=== PATIENT | female | born 1990 | race Caucasian/White ===

== ENCOUNTER 2022-04-25 17:40 | Inpatient (IN) | payer OTHER, SELFPAY ==
[2022-04-25 17:59] VITALS: BP 134/66; PULSE 85; RESP 20; TEMP 36.9; O2SAT 100; BMI 28.2
[2022-04-25 18:37] LABS: Add Manual Diff / Slide Review NO; Basophils Absolute Auto 0 /uL (0-100); Basophils Percent Auto 0.1 % (0-2); Eosinophils Absolute Auto 0 /uL (0-450); Eosinophils Percent Auto 0.2 % (2-4); Hematocrit 38.8 % (36-46); Hemoglobin 13.3 g/dL (12.0-16.0); Lymphocytes Absolute Auto 700 /uL (1100-4500); Mean Corpuscular HGB Conc 34.3 % (30-36); Mean Corpuscular Volume 90.6 fL (80-100); Monocytes Absolute Auto 400 /uL (0-900); Monocytes Percent Auto 3.6 % (3-14); Neutrophils Absolute Auto 10200 /uL (1500-7000); Neutrophils Percent Auto 90.1 % (50-75); Platelet Count 181 X10^3/uL (150-400); Red Blood Cell Count 4.28 X10^6/uL (4.0-5.2); Red Cell Distribution Width 13.2 % (11.6-14.8); White Blood Cell Count 11.4 X10^3/uL (4.5-11.0)
[2022-04-25 18:44] LABS: Alanine Aminotransferase 33 IU/L (<35); Albumin 4.3 g/dL (3.5-5.0); Albumin Globulin Ratio 1.3 (1.0-2.8); Alkaline Phosphatase 70 U/L (38-126); Aspartate Aminotransferase 31 IU/L (14-36); BUN Creatinine Ratio 9.2 (6-22); Bilirubin Total 1.4 mg/dL (0.2-1.3); Blood Urea Nitrogen 6 mg/dL (7-17); Carbon Dioxide 25 mmol/L (22-32); Chloride 99 mmol/L (98-107); Estimated Glomerular Filt Rate > 60 mL/min (>60); Globulin 3.4 g/dL (1.7-4.1); Glucose 106 mg/dL (70-100); HEMOLYSIS 47 (0-50); Lipase 100 U/L (23-300); Potassium 4.2 mmol/L (3.4-5.1); Sodium 134 mmol/L (137-145); Total Protein 7.7 g/dL (6.3-8.2)
--- NOTE | 2022-04-25 20:34 | ED_ITS ---
HPI - Abdominal Pain General Chief Complaint: Abdominal Pain Stated Complaint: ABD pain, 3x days Time Seen by Provider: 04/25/22 20:27 Source: patient Mode of arrival: Ambulatory History of Present Illness HPI narrative: This 32-year-old healthy young woman comes to the ER with abdominal pain for 4 days. Back in November she was diagnosed by CT with diverticulitis and was treated with oral antibiotics and resolved completely. Similar symptoms started Thursday of this week and she was seen in the clinic on and started on Cipro and Flagyl. She lives in [place]. The CT scanner was down and she could not get imaging then. 48 hours have elapsed since the onset of antibiotic therapy and she still has very significant abdominal pain radiating to the right lower quadrant now. She has no dysuria. She has a little bit of flank pain. She has no fever, no vomiting no constipation. No other symptoms of illness. No prev ious surgeries and no other medical problems. She is not as she is not currently sexually active. Related Data Home Medications Medication Instructions Recorded Confirmed valacyclovir 500 mg tablet 500 mg PO DAILY 03/04/19 03/04/19 Allergies Allergy/AdvReac Type Severity Reaction Status Date / Time No Known Drug Allergies Allergy Unverified 03/04/19 11:09 Review of Systems Review of Systems Narrative: Complete review of systems is negative other than as noted above. Patient History Medical History (Updated 04/25/22 @ 21:26 by Ridge Gómez MD) Chicken pox (~1992) Headache Herpes (~2011) Migraines Social History marital status: unmarried,single pets and animals: Yes education level: high school occupational status: employed leisure activities: other seatbelt use: always helmet use: Yes water heater temp set < 120 deg: Yes working smoke detector in home: Yes fire extinguisher in home: Yes carbon monox detector in home: Yes firearms in home: No Smoking Status: Never smoker alcohol intake: current substance use type: does not use during the past year weight has: remained stable Smoking Status: Never smoker alcohol intake frequency: holidays/special occasions only Exam Narrative Exam Narrative: GENERAL: Alert, cooperative and in no distress. HEAD: Atraumatic. Normocephalic. EYES: Sclera are clear without icterus. Extraocular movements are full. ENT: No rhinorrhea. Oropharynx is moist. Mouth exam is benign. NECK: Supple. Full range of motion. CARDIOVASCULAR: Normal rate and rhythm without murmur gallop or rub. RESPIRATORY: Clear to auscultation. Breath sounds equal bilaterally. No wheezes, rales, or rhonchi. GASTROINTESTINAL: Soft, tender, McBurney's point tenderness. Some guarding some rebound. Heel strike is positive EXTREMITIES: No edema, full range of motion. No obvious trauma. BACK: Normal inspection, no CVA tenderness. NEURO: Nonfocal examination, normal speech, normal gait. SKIN: No rash or erythema of visible areas PSYCH: Normally oriented. Normal range of affect. Appropriate behavior Initial Vital Signs Initial Vital Signs: Vital Signs Temperature 98.5 F 04/25/22 17:59 Pulse Rate 85 04/25/22 17:59 Respiratory Rate 20 04/25/22 17:59 Blood Pressure 134/66 04/25/22 17:59 Pulse Oximetry 100 04/25/22 17:59 Oxygen Delivery Method 04/25/22 17:59 Course Orders Ordered: ED Orders 04/25/22 18:15 Complete Blood Count AUTO DIFF Stat Comprehensive Metabolic Panel Stat Lipase Stat 04/25/22 20:39 CT abdomen pelvis w con Stat 04/25/22 21:14 COVID19 -Nasal RAPID/Pre-Proc Stat Consultations Consultation #1: Consult with Mayra Hernández. She agrees to see and admit the patient. Vital Signs Vital signs: Vital Signs - 8 hr 04/25/22 17:59 Temperature 98.5 F Pulse Rate 85 Respiratory Rate 20 Blood Pressure 134/66 Pulse Oximetry 100 Oxygen Delivery Method Room Air MDM - Abdominal Pain Lab Data Result diagrams: 04/25/22 18:15 04/25/22 18:15 Labs: Lab Results 04/25/22 04/25/22 Range/Units 18:15 18:15 WBC 11.4 H (4.5-11.0) X10^3/uL RBC 4.28 (4.0-5.2) X10^6/uL Hgb 13.3 (12.0-16.0) g/dL Hct 38.8 (36-46) % MCV 90.6 (80-100) fL MCH 31.0 (26-34) PG MCHC 34.3 (30-36) % RDW 13.2 (11.6-14.8) % Plt Count 181 (150-400) X10^3/uL Neut % (Auto) 90.1 H (50-75) % Lymph % (Auto) 6.0 L (25-40) % [place] % (Auto) 3.6 (3-14) % Eos % (Auto) 0.2 L (2-4) % Baso % (Auto) 0.1 (0-2) % Neut # (Auto) 34917 H (3528-4495) /uL Lymph # (Auto) 700 L (1646-8696) /uL [place] # (Auto) 400 (0-900) /uL Eos # (Auto) 0 (0-450) /uL Baso # (Auto) 0 (0-100) /uL Sodium 134 L (137-145) mmol/L Potassium 4.2 (3.4-5.1) mmol/L Chloride 99 (98-107) mmol/L Carbon Dioxide 25 (22-32) mmol/L BUN 6 L (7-17) mg/dL Creatinine 0.65 (0.52-1.04) mg/dL Estimated GFR > 60 (>60) mL/min BUN/Creatinine Ratio 9.2 (6-22) Glucose 106 H (70-100) mg/dL Calcium 9.0 (8.4-10.2) mg/dL Total Bilirubin 1.4 H (0.2-1.3) mg/dL AST 31 (14-36) IU/L ALT 33 (<35) IU/L Alkaline Phosphatase 70 (38-126) U/L Total Protein 7.7 (6.3-8.2) g/dL Albumin 4.3 (3.5-5.0) g/dL Globulin 3.4 (1.7-4.1) g/dL Albumin/Globulin Ratio 1.3 (1.0-2.8) Lipase 100 (23-300) U/L Point of care testing: Point of Care Testing Test Results Negative Urine Dip Bedside Urine Glucose Negative Bedside Urine Bilirubin - Negative Bedside Urine Ketone +/- 5 Urine Specific [place] 1.010 Bedside Urine Occult Blood - Negative Bedside Urine pH 6.0 Bedside Urine Protein - Negative Bedside Urine Urobilinogen +/- 1mg Bedside Urine Nitrite - Negative Bedside Urine Leukocytes - Negative Esterase Imaging Data CT scan - abdomen/pelvis: Radiologist's Impression: IMPRESSION:? ? Perforated diverticulitis, with a likely contained perforation/early abscess measuring up to 2.9 cm.? A mild amount of free pelvic fluid is also seen. - Surgical consultation is recommended. ? Potential left ovarian hemorrhagic cyst.? ? Note: Findings and recommendations discussed by telephone with Dr. Gómez at 8:03 p.m. [place] time on April 25, 2022. ? ? Dictated by: Honorio Blood M.D. on 04/25/2022 at 19:56 ? ? Approved by: Honorio Blood M.D. on 04/25/2022 at 20:04 ? MDM Narrative Medical decision making narrative: Perforated diverticulitis. Will admit to surgery Discharge Plan Departure Patient Disposition: Admitted As Inpatient Clinical Impression: Diverticulitis Admit Provider: Mayra Hernández
--- NOTE | 2022-04-25 20:39 | DI.CT.S_ITS ---
PROCEDURE: CT ABDOMEN PELVIS W CON INDICATIONS: Fever and abdominal pain TECHNIQUE: After the administration of oral and IV contrast, axial sections were acquired from the lung bases to the pubic symphysis. Coronal and sagittal reformats were performed. For radiation dose reduction, the following was used: automated exposure control, adjustment of mA and/or kV according to patient size. COMPARISON: None. FINDINGS: Image quality: Excellent. Lung bases: Unremarkable. Heart: No significant findings. ABDOMEN: Liver: Unremarkable. Gallbladder: Unremarkable. Biliary ducts: Unremarkable. Pancreas: Unremarkable. Spleen: Unremarkable. Adrenal Glands: Unremarkable. Kidneys and Ureters: Unremarkable. Stomach and Bowel: There is moderate wall thickening seen involving the sigmoid colon. Adjacent to the sigmoid colon, there is a relatively poorly defined focus of fluid and gas that measures 2.4 x 2.4 x 2.9 cm. The colon is otherwise unremarkable. No dilated loops of small bowel are seen. The stomach is relatively decompressed. Peritoneum: Mild free pelvic fluid can be seen. Ventral Wall: No hernia. Abdominal Nodes: No retroperitoneal or mesenteric adenopathy by size criteria. Vessels: Aorta and inferior vena cava are normal in size. PELVIS: Pelvic Organs: The uterus appears normal for age. Fluid is seen along the endometrial stripe. Multiple cystic foci can be seen involving both ovaries, with the largest on the left measuring up to 2.2 cm, which are considered to be within physiologic limits. However, there is mild rim enhancement seen of the largest left ovarian cyst. No adnexal masses are seen. Bladder: Unremarkable. Pelvic Nodes: No enlarged lymph nodes. Miscellaneous: No inguinal hernias are seen. Bones: Unremarkable. IMPRESSION: Perforated diverticulitis, with a likely contained perforation/early abscess measuring up to 2.9 cm. A mild amount of free pelvic fluid is also seen. - Surgical consultation is recommended. Potential left ovarian hemorrhagic cyst. Note: Findings and recommendations discussed by telephone with Dr. Gómez at 8:03 p.m. [place] time on April 25, 2022. Dictated by: Honorio Blood M.D. on 04/25/2022 at 19:56 Approved by: Honorio Blood M.D. on 04/25/2022 at 20:04
[2022-04-25 21:09] VITALS: BP 131/64
[2022-04-25 21:10] VITALS: PULSE 86; O2SAT 99
[2022-04-25 21:18] VITALS: RESP 19
[2022-04-25] MEDS: ACETAMINOPHEN 325 MG TABLET 975 MG PO (21:34)
[2022-04-25] MEDS: metroNIDAZOLE 500 MG TABLET PO (21:35)
[2022-04-25] MEDS: CIPROFLOXACIN 250 MG TABLET 500 MG PO (21:35)
[2022-04-25] MEDS: KETOROLAC 30 MG/ML VIAL 15 MG IV (21:35)
[2022-04-25 21:40] LABS: COVID19 -Nasal RAPID Negative (Negative)
[2022-04-25 21:49] VITALS: O2SAT 99
[2022-04-25 21:56] VITALS: BMI 28.2
[2022-04-25] MEDS: SODIUM CHLORIDE 0.9% 1,000 ML 100 ML IV (22:24)
[2022-04-25] MEDS: metroNIDAZOLE 500 MG/100 ML PIGGYBACK 100 MG IV (22:24)
[2022-04-25 22:38] VITALS: BP 111/65; PULSE 78; RESP 18; TEMP 37.3; O2SAT 98
[2022-04-25] MEDS: CIPROFLOXACIN 400 MG/200 ML PIGGYBACK 200 MG IV (23:23)
[2022-04-26] MEDS: metroNIDAZOLE 500 MG/100 ML PIGGYBACK 100 MG IV ×3 (05:29→22:05)
[2022-04-26 05:36] VITALS: BP 121/61; PULSE 75; RESP 18; TEMP 36.7; O2SAT 100
[2022-04-26 05:51] LABS: Add Manual Diff / Slide Review NO; Basophils Absolute Auto 0 /uL (0-100); Basophils Percent Auto 0.4 % (0-2); Eosinophils Absolute Auto 100 /uL (0-450); Eosinophils Percent Auto 1.1 % (2-4); Hematocrit 34.8 % (36-46); Hemoglobin 12.1 g/dL (12.0-16.0); Lymphocytes Absolute Auto 600 /uL (1100-4500); Lymphocytes Percent Auto 7.5 % (25-40); Mean Corpuscular HGB Conc 34.6 % (30-36); Mean Corpuscular Volume 89.6 fL (80-100); Monocytes Absolute Auto 500 /uL (0-900); Neutrophils Absolute Auto 7000 /uL (1500-7000); Platelet Count 157 X10^3/uL (150-400); Red Blood Cell Count 3.89 X10^6/uL (4.0-5.2); Red Cell Distribution Width 13.1 % (11.6-14.8); White Blood Cell Count 8.3 X10^3/uL (4.5-11.0)
[2022-04-26 06:04] LABS: BUN Creatinine Ratio 13.6 (6-22); Blood Urea Nitrogen 9 mg/dL (7-17); Calcium 8.4 mg/dL (8.4-10.2); Carbon Dioxide 27 mmol/L (22-32); Chloride 101 mmol/L (98-107); Estimated Glomerular Filt Rate > 60 mL/min (>60); Glucose 94 mg/dL (70-100); HEMOLYSIS < 15 (0-50); Potassium 3.9 mmol/L (3.4-5.1); Sodium 134 mmol/L (137-145)
[2022-04-26 07:47] VITALS: BP 114/54; PULSE 81; RESP 16; TEMP 37.2; O2SAT 98
[2022-04-26] MEDS: CELECOXIB 200 MG CAPSULE PO ×2 (08:12→20:59)
[2022-04-26] MEDS: GABAPENTIN 300 MG CAPSULE PO ×2 (08:12→20:59)
[2022-04-26] MEDS: ACETAMINOPHEN 325 MG TABLET 650 MG PO ×2 (08:15→18:15)
[2022-04-26] MEDS: ENOXAPARIN 40 MG/0.4 ML SYRINGE SUBCUT (08:15)
--- NOTE | 2022-04-26 09:56 | P.HP_ITS ---
History of Present Illness History of Present Illness Date Patient Seen: 04/26/22 Time Patient Seen: 09:56 Chief complaint: ABD pain, 3x days Narrative: Recurrent diverticulitis(?) previous episode in late January that was treated with antibiotics with a rapid recovery. NO colonoscopy after that episode and no associated abscess. Feels lightly better today, had started Cipro and flagyl on as outpatient. CT scan shows perforated, contained diverticulitis in sigmoid colon with associated abscess. Also ovarian cyst with possibility of left sided hemorrha gic ovarian cyst Patient History Medical History Chicken pox (~1992) Headache Herpes (~2011) Migraines Family & Social History Safety & Behavioral: Feels Safe in Current Yes Environment Been Physically Hurt or No Threatened By a Person Tobacco & Substance use: Smoking Status Never smoker alcohol intake current alcohol intake frequency holiday/special occasion Meds Home Medications and Allergies Home Medications Medication Instructions Recorded Confirmed Type acetaminophen 500 mg tablet 500 mg PO Q6HR PRN Pain (Scale 04/25/22 04/25/22 History Score 1-3) ciprofloxacin HCl 500 mg tablet 500 mg PO BID 04/25/22 04/25/22 History hydrocodone 5 mg-acetaminophen 325 5 - 325 tab PO Q6HR PRN Pain 04/25/22 04/25/22 History mg tablet (Scale Score 4-6) metronidazole 500 mg tablet 500 mg PO TID 04/25/22 04/25/22 History ondansetron HCl 4 mg tablet 4 mg PO Q8HR PRN Nausea 04/25/22 04/25/22 History Allergies Allergy/AdvReac Type Severity Reaction Status Date / Time No Known Drug Allergies Allergy Unverified 03/04/19 11:09 Review of Systems Review of Systems Narrative: no constipation, no diarrhea, no cough ROS: Yes All systems reviewed with the patient and are negative except as otherwise documented Exam Vital Signs (past 8 hours): - 04/26/22 05:36 04/26/22 07:47 Temperature 98.1 F 98.9 F Pulse Rate 75 81 Respiratory Rate 18 16 Blood Pressure 121/61 114/54 L Pulse Oximetry 100 98 Oxygen Flow Rate 0 0 Oxygen Delivery Method Room Air Oxygen Flow Rate 0 Const General: cooperative and healthy appearing Nutritional Appearance: average body habitus Orientation: alert, awake and oriented x3 HENMT Head: normocephalic and atraumatic Ears: hearing grossly normal bilaterally Eyes General: appearance normal, both eyes and all related structures Sclera: sclerae normal Neck Neck: normal visual inspection and trachea midline Chest Chest: normal inspection of the chest Resp Effort & Inspection: normal respiratory effort and able to speak in complete sentences Cardio Rate: tachycardic Rhythm: regular rhythm GI Inspection: normal to inspection Palpation: soft Other: generalized tender to palpation, no surgical abdomen. Great in left Lower abdomen Skin General: no rashes or lesions noted and turgor normal Neuro General: patient alert, patient awake and patient oriented x3 Cognition: normal cognition Extrem General: normal to inspection Psych Appearance: grossly normal Affect: normal affect Attitude: cooperative Judgment: judgment good Objective Labs Result Diagrams: 04/26/22 05:14 04/26/22 05:14 Labs: Laboratory Results - last 24 hr 04/25/22 04/25/22 04/25/22 18:15 18:15 21:15 WBC 11.4 H RBC 4.28 Hgb 13.3 Hct 38.8 MCV 90.6 MCH 31.0 MCHC 34.3 RDW 13.2 Plt Count 181 Neut % (Auto) 90.1 H Lymph % (Auto) 6.0 L [place] % (Auto) 3.6 Eos % (Auto) 0.2 L Baso % (Auto) 0.1 Neut # (Auto) 10311 H Lymph # (Auto) 700 L [place] # (Auto) 400 Eos # (Auto) 0 Baso # (Auto) 0 Sodium 134 L Potassium 4.2 Chloride 99 Carbon Dioxide 25 BUN 6 L Creatinine 0.65 Estimated GFR > 60 BUN/Creatinine Ratio 9.2 Glucose 106 H Calcium 9.0 Total Bilirubin 1.4 H AST 31 ALT 33 Alkaline Phosphatase 70 Total Protein 7.7 Albumin 4.3 Globulin 3.4 Albumin/Globulin Ratio 1.3 Lipase 100 SARS-CoV-2 (PCR) Negative 04/26/22 04/26/22 05:14 05:14 WBC 8.3 RBC 3.89 L Hgb 12.1 Hct 34.8 L MCV 89.6 MCH 31.0 MCHC 34.6 RDW 13.1 Plt Count 157 Neut % (Auto) 85.0 H Lymph % (Auto) 7.5 L [place] % (Auto) 6.0 Eos % (Auto) 1.1 L Baso % (Auto) 0.4 Neut # (Auto) 7000 Lymph # (Auto) 600 L [place] # (Auto) 500 Eos # (Auto) 100 Baso # (Auto) 0 Sodium 134 L Potassium 3.9 Chloride 101 Carbon Dioxide 27 BUN 9 Creatinine 0.66 Estimated GFR > 60 BUN/Creatinine Ratio 13.6 Glucose 94 Calcium 8.4 Total Bilirubin AST ALT Alkaline Phosphatase Total Protein Albumin Globulin Albumin/Globulin Ratio Lipase SARS-CoV-2 (PCR) Assessment & Plan Assessment & Plan narrative: Recurrent diverticulitis with abscess Ovarian cyst, possbile hemorrhagic on left Plan: IV antibiotics Cipro and flagyl Pain management General diet. COVID-19 COVID-19 status: Negative Time Spent With Patient Critical Care time: I spent a total of [] minutes of critical care time on this patient's care today; this time is exclusive of procedural time.
[2022-04-26] MEDS: CIPROFLOXACIN 400 MG/200 ML PIGGYBACK 200 MG IV ×2 (11:18→20:59)
--- NOTE | 2022-04-26 11:40 | CM.DANOTE ---
DCP: Case received, EMR reviewed and met with patient. Patient's mother was also at bedside. Introduced self and role. Was able to get some history from patient to complete DCP assessment. DCP assessment completed with information currently available. Patient is a 32 year old female who admitted yesterday evening to the care of the hospitalist/surgical team. PCP: Dr. Morrell. Payer: confirmed: [employer]. Patient came to the hospital via private vehicle secondary to having abdominal pain for the last 4 days. According to notes, patient had recently been diagnosed with diverticulitis, and treated with oral antibiotics. Patient then continued to have abdominal pain. Patient was diagnosed with perforated diverticulitis. At this time, treatment will consist of IV ABO, and flagyl, as well as pain management. Met with patient and mother in her room. Patient is alert and oriented, independent at her baseline. She is self employed, and resides in [place]. P: DCP to continue to follow. Plan at this time is home when medically stable. Lucero Cote RN/Receptionist Secretary Discharge Planning/Care Management CM Discharge Assessment Start: 04/26/22 11:38 Freq: Status: Active Protocol: Document 04/26/22 11:38 (Rec: 04/26/22 11:40 [id number]) Discharge Planning Assessment Assigned [employer]om[employer] Operator Lucero Cote RN/Receptionist Secretary Advance Directives? No History Provided By Patient,Medical Record Prior Living Arrangements House Household Members none Type of transporation used prior to Drives own vehicle admit Independent with ADL's Yes Is patient alert and oriented? Yes Caregiver for Another No Discharge Plan Home Transportation Arrangement Mother Referrals Initiated None needed Whiteboard Updated in Patient Room with Yes name and ext. # of [employer]om[employer] Operator Review Status In Process Next Review Type Continued Stay Review
--- NOTE | 2022-04-26 12:17 | PC.NURSE ---
Pt verbalized understanding of care today of continuing IV antibiotics. Pt tolerating pain with tylenol and gabapentin. After antibx started, pt noticed redness above IV site. Rn lowered rate to 100ml/hr and rash is reducing nearly gone.
[2022-04-26] MEDS: PANTOPRAZOLE DR 20 MG TABLET PO (20:59)
[2022-04-26] MEDS: OXYCODONE IR 5 MG TABLET PO (20:59)
[2022-04-26 22:35] VITALS: BP 106/65; PULSE 65; RESP 14; TEMP 36.7; O2SAT 98
--- NOTE | 2022-04-27 03:09 | PC.NURSE ---
Pt is AxOx4, independent and cooperative. VSS, pt c/o abd pain and recieved PRN Oxy 5mg once at bedtime with good effect. Otherwise, pt is doing well and slept well. Continued IV ABO. No other changes.
[2022-04-27] MEDS: metroNIDAZOLE 500 MG/100 ML PIGGYBACK 100 MG IV (05:33)
[2022-04-27] MEDS: PANTOPRAZOLE DR 20 MG TABLET PO (06:24)
[2022-04-27 06:43] VITALS: BP 105/68; PULSE 87; RESP 14; TEMP 36.8; O2SAT 98
[2022-04-27 08:45] LABS: Add Manual Diff / Slide Review NO; Basophils Absolute Auto 0 /uL (0-100); Basophils Percent Auto 0.2 % (0-2); Eosinophils Absolute Auto 100 /uL (0-450); Eosinophils Percent Auto 1.2 % (2-4); Hematocrit 34.4 % (36-46); Hemoglobin 11.8 g/dL (12.0-16.0); Lymphocytes Absolute Auto 600 /uL (1100-4500); Lymphocytes Percent Auto 7.8 % (25-40); Mean Corpuscular HGB Conc 34.2 % (30-36); Mean Corpuscular Hemoglobin 30.6 PG (26-34); Mean Corpuscular Volume 89.3 fL (80-100); Monocytes Absolute Auto 600 /uL (0-900); Monocytes Percent Auto 8.2 % (3-14); Neutrophils Absolute Auto 6000 /uL (1500-7000); Neutrophils Percent Auto 82.6 % (50-75); Platelet Count 180 X10^3/uL (150-400); Red Blood Cell Count 3.85 X10^6/uL (4.0-5.2); Red Cell Distribution Width 13.1 % (11.6-14.8); White Blood Cell Count 7.2 X10^3/uL (4.5-11.0)
[2022-04-27] MEDS: CELECOXIB 200 MG CAPSULE PO (09:06)
[2022-04-27] MEDS: GABAPENTIN 300 MG CAPSULE PO (09:06)
[2022-04-27] MEDS: CIPROFLOXACIN 400 MG/200 ML PIGGYBACK 200 MG IV (09:06)
--- NOTE | 2022-04-27 10:54 | PC.NURSE ---
Discharge Note Patient A&O, VSS, RA, no complaints of pain/discomfort. Discharge packet reviewed with patient, all questions/concerns addressed. PIV removed. Patient able to dress self and pack all belongings. Patient reminded to pickling grader prescriptions at preferred pharmacy. Patient taken down via wheelchair to POV.
--- NOTE | 2022-04-27 12:03 | P.DS_ITS ---
History of Present Illness History of Present Illness Date Patient Seen: 04/27/22 Time Patient Seen: 12:03 Chief complaint: ABD pain, 3x days Narrative: Recurrent diverticulitis(?) previous episode in late January that was treated with antibiotics with a rapid recovery. NO colonoscopy after that episode and no associated abscess. Feels lightly better today, had started Cipro and flagyl on as outpatient. CT scan shows perforated, contained diverticulitis in sigmoid colon with associated abscess. Also ovarian cyst with possibility of left sided hemorrha gic ovarian cyst mild anemia Discharge Providers Provider Date of admission: 04/25/22 21: Discharge Date: 04/27/22 Primary care physician: Reyna Morrell MD Discharge provider: Mayra Hernández MD Summary Hospital Course Discharge Diagnosis: Recurrent diverticulitis this time with associated abscess Hemorrhagic ovarian cyst mild anemia Hospital Course: Responded to antibiotics, hydration and pain control Status at Discharge Cognitive/behavioral status at discharge: at baseline, oriented Functional status at discharge: independent ambulation Overall status at discharge: patient is progressing back to baseline Time Spent with Patient Time spent: Greater than 30 minutes Exam Vital Signs (past 8 hours): - 04/27/22 06:43 Temperature 98.2 F Pulse Rate 87 Respiratory Rate 14 Blood Pressure 105/68 Pulse Oximetry 98 Oxygen Flow Rate 0 Oxygen Delivery Method Room Air Oxygen Flow Rate 0 Narrative Exam Narrative: Abdomen is soft and marked decrease tenderness, no fever and normal WBC. Tolerating diet. Objective Labs Result Diagrams: 04/27/22 08:30 04/26/22 05:14 Labs: Laboratory Results - last 24 hr 04/27/22 08:30 WBC 7.2 RBC 3.85 L Hgb 11.8 L Hct 34.4 L MCV 89.3 MCH 30.6 MCHC 34.2 RDW 13.1 Plt Count 180 Neut % (Auto) 82.6 H Lymph % (Auto) 7.8 L [place] % (Auto) 8.2 Eos % (Auto) 1.2 L Baso % (Auto) 0.2 Neut # (Auto) 6000 Lymph # (Auto) 600 L [place] # (Auto) 600 Eos # (Auto) 100 Baso # (Auto) 0 PFSH Medical History Chicken pox (~1992) Headache Herpes (~2011) Migraines Social History marital status: unmarried,single household members: none pets and animals: Yes education level: high school occupational status: employed leisure activities: other seatbelt use: always helmet use: Yes water heater temp set < 120 deg: Yes working smoke detector in home: Yes fire extinguisher in home: Yes carbon monox detector in home: Yes firearms in home: No Smoking Status: Never smoker alcohol intake: current substance use type: does not use during the past year weight has: remained stable Discharge Assessment & Plan Assessment and Plan Assessment: Diverticulitis w abscess hemorrhagic ovarian cyst anemia Plan of Treatment: complete 10 days of cipro and flagyl which she has at home No intervention on ovarian cyst, just NSAIDS for pain Observation of anemia Needs colonoscopy in 6-8 weeks for evaluation of diverticulitis Discharge Plan Discharge Plan Patient Disposition: Home Discharge orders & Medications Prescriptions: New celecoxib [Celebrex] 200 mg Capsule 200 mg PO BID Qty: 20 1RF oxycodone 5 mg Tablet 5 mg PO Q3HR PRN (Reason: Pain, Moderate (4-6)) Qty: 10 0RF Continued hydrocodone-acetaminophen 5-325 mg tablet 5 - 325 tab PO Q6HR PRN (Reason: Pain (Scale Score 4-6)) Label Comments: TAKE ONE TABLET BY MOUTH EVERY 6 HOURS NEEDED FOR PAIN DO NOT DRIVE OR DRINK ALCOHOL WHILE USING THIS MEDICATION ondansetron HCl 4 mg tablet 4 mg PO Q8HR PRN (Reason: Nausea) Label Comments: Take 1 tablet (4 mg total) by mouth every 8 (eight) hours as needed for Nausea or Vomiting metronidazole 500 mg tablet 500 mg PO TID Label Comments: TAKE ONE TABLET BY MOUTH THREE TIMES DAILY FOR 7 DAYS AVOID ALCOHOL ciprofloxacin HCl 500 mg tablet 500 mg PO BID acetaminophen 500 mg tablet 500 mg PO Q6HR PRN (Reason: Pain (Scale Score 1-3)) Follow up/Referrals: Mayra Hernández MD [Physician] - 6 Weeks (diagnostic colonoscopy ) Reyna Morrell MD [Primary Care Provider] - Diet/Activity/Treatments Diet: Diet as Tolerated Diet comment: no restrictions Activity: no restrictions Visit Report/Discharge Packet Instructions: Colonoscopy, DI for Diverticulitis Discharge Data Primary Care Provider: Reyna Morrell
== END 2022-04-27 10:45 | disposition home or self-care (01) | DRG 392 ==
LOC: ED 21:01 → AC 21:22
PROVIDERS: Emergency Medicine; Admitting Provider Surgery; Emergency Provider Family Medicine Addiction Medicine; PCP Family Medicine; Referring Provider Family Medicine Addiction Medicine; Visit Provider Surgery
DX: K57.20 Diverticulitis of large intestine with perforation and abscess without bleeding (principal); N83.201 Unspecified ovarian cyst, right side; Z20.822 Contact with and (suspected) exposure to COVID-19
CPT/HCPCS: 36415; 74177; 80048; 80053; 81003; 81025; 83690; 85025; 87635; 96374; 99221; 99238; 99284; C9803; J0744; J1650; J1885; Q9967

== ENCOUNTER 2022-10-17 06:50 | Day surgery (SDC) | payer OTHER, SELFPAY ==
[2022-10-17 07:03] VITALS: BP 116/77; PULSE 86; RESP 18; TEMP 36.2; O2SAT 100; BMI 21.7
[2022-10-17] MEDS: LACTATED RINGERS 1,000 ML 42 ML IV (07:31)
--- NOTE | 2022-10-17 07:31 | SUR.PREOP ---
Attempted to obtain test, pt was unable to urinate. Per Dr Hernández ok to proceed with colonoscopy with no test. Patient denies chance of being .
--- NOTE | 2022-10-17 08:36 | P.HP_ITS ---
History of Present Illness History of Present Illness Date Patient Seen: 10/17/22 Time Patient Seen: 08:36 Chief complaint: DX Colonoscopy Narrative: H/o ruptured diverticulitis. Unintentional weight loss the last 3 months. continued pelvic pain with motion. Patient History Medical History Chicken pox (~1992) Headache Herpes (~2011) Migraines Family & Social History Social History: household members none Tobacco & Substance use: Smoking Status Never smoker alcohol intake current alcohol intake frequency holiday/special occasion Substance Use Type does not use Meds Home Medications and Allergies Home Medications Medication Instructions Recorded Confirmed Type sodium,potassium,mag sulfates 17.5 See Rx Instructions PO .COMPLEX 10/15/22 Rx gram-3.13 gram-1.6 gram oral soln #354 mL (Suprep Bowel Prep Kit) Q-Defend Immune 2 PO DAILY 10/17/22 History Total Probiotics PO TID 10/17/22 History glutamine 500 mg capsule 500 mg PO TID 10/17/22 10/17/22 History (L-Glutamine) psyllium 1 tsp PO DAILY 10/17/22 10/17/22 History Allergies Allergy/AdvReac Type Severity Reaction Status Date / Time No Known Drug Allergies Allergy Verified 10/17/22 07:03 Review of Systems Review of Systems ROS: Yes All systems reviewed with the patient and are negative except as otherwise documented Exam Vital Signs (past 8 hours): - 10/17/22 07:03 Temperature 97.2 F L Pulse Rate 86 Respiratory Rate 18 Blood Pressure 116/77 Pulse Oximetry 100 Oxygen Delivery Method Room Air Oxygen Delivery Method Room Air Const General: cooperative, healthy appearing and comfortable [facility] Head: normal to inspection, normocephalic and atraumatic Eyes General: appearance normal, both eyes and all related structures Neck Neck: normal visual inspection and trachea midline Chest Chest: normal inspection of the chest Resp Effort & Inspection: normal respiratory effort and able to speak in complete sentences Cardio Rate: regular rate Rhythm: regular rhythm GI Inspection: normal to inspection Palpation: soft Skin General: no rashes or lesions noted Neuro General: patient alert, patient awake and patient oriented x3 Extrem General: normal to inspection and full ROM Psych Judgment: judgment good Assessment & Plan Assessment & Plan narrative: H/o ruptured diverticulitis. Colonoscopy with MAC Time Spent With Patient Time with patient: less than 30 minutes Critical Care time: I spent a total of [] minutes of critical care time on this patient's care today; this time is exclusive of procedural time.
[2022-10-17 08:39] VITALS: BP 99/58; PULSE 70; RESP 16; TEMP 36.8; O2SAT 100
--- NOTE | 2022-10-17 08:39 | PM.OP.COLON ---
Operative Date/Time/Diagnoses Date of procedure: 10/17/22 Time of procedure: 08:39 Pre-op diagnosis: History of perforated diverticulitis Post-op diagnosis: same Procedure & Clinicians Study performed: Colonoscopy under MAC Same procedure as scheduled: Yes Indications: Perforated diverticulitis Surgeon: Mayra Hernández Procedure Notes Procedure in detail: Preop diagnosis: History of perforated diverticulitis Postop diagnosis: Same Operative procedure: Colonoscopy with MAC Surgeon: Evelyne Hernández MD Findings: Normal colonoscopy with the exception of focal diverticulosis at approximately 40 cm Procedure: Patient placed in lateral position. Rectal exam performed showing normal tone no masses. Colonoscope inserted into the rectum advanced to ileocecal valve with minimal difficulty. Insufflation extraction scope and the above findings. Impression: Normal colonoscopy with focal findings of diverticulosis in the sigmoid colon approximately 40 cm Plan: Repeat colonoscopy in 10 years unless otherwise indicated by change in clinical condition or family history. Findings: divertiulosis Specimen(s): none sent Complications: none Impression: Diverticulosis in the area of her previous diverticular abscess/perforation. No other abnormalities found Post-procedure Recommendations: Colonoscopy in 10 years Follow up: as needed Disposition: PACU
[2022-10-17 08:44] VITALS: BP 96/57; PULSE 61; RESP 16; O2SAT 100
[2022-10-17 08:49] VITALS: BP 110/66; PULSE 67; RESP 14; O2SAT 100
[2022-10-17 09:14] VITALS: BP 110/58; PULSE 62; RESP 16; TEMP 36.6; O2SAT 100
== END 2022-10-17 09:13 | disposition home or self-care (01) ==
PROVIDERS: PCP Family Medicine; Referring Provider Surgery; Visit Provider Surgery
PROC: 0DJD8ZZ Inspection of Lower Intestinal Tract, Via Natural or Artificial Opening Endoscopic (ICD-10-PCS; CPT 45378; principal; 2022-10-17 07:45)
DX: Z09 Encounter for follow-up examination after completed treatment for conditions other than malignant neoplasm (principal); Z87.19 Personal history of other diseases of the digestive system; K57.30 Diverticulosis of large intestine without perforation or abscess without bleeding
CPT/HCPCS: 45378; J2704

== ENCOUNTER → 2024-12-26 14:59 | Outpatient (CLI) | payer BC, SELFPAY ==
--- NOTE | 2024-12-26 15:01 | DI.US.S_ITS ---
PROCEDURE: US PELVIC COMPLETE INDICATIONS: DYSMENORRHEA/DIVERTICULITIS TECHNIQUE: Real-time scanning was performed of the pelvic organs, with image documentation. Additional endovaginal scanning was necessary due to incomplete visualization of the adnexal and endometrial structures by transabdominal scanning. COMPARISON: None. FINDINGS: Uterus: Uterus is anteverted and normal in size at 7.2 x 3.5 x 5.0 cm. The myometrium is homogeneous. The endometrium measures 7.1 mm combined thickness. Midline posterior intramural fibroid 1.5 x 1.2 x 1.5 Ovaries: The right ovary measures 3.7 x 2.5 x 2.3 cm, with a calculated ovarian volume of 11.1 cc. The left ovary measures 3.6 x 1.5 x 3.3 cm, with a calculated ovarian volume of 9.4 cc. The ovaries have a normal sonographic appearance. Less than 12 follicles can be seen in each ovary. No adnexal masses are seen. Other: No pathologic free abdominal or pelvic fluid. IMPRESSION: Intrauterine fibroid. Otherwise unremarkable ultrasound the pelvis Approved by: Maycol Vargas M.D. on 12/27/2024 at 16:31
== END ==
PROVIDERS: PCP Naturopath; Referring Provider Naturopath; Visit Provider Naturopath
DX: D25.1 Intramural leiomyoma of uterus (principal); N94.5 Secondary dysmenorrhea; Z87.19 Personal history of other diseases of the digestive system
CPT/HCPCS: 76830; 76856